=== PATIENT | female | born 1990 | race Caucasian/White ===

== ENCOUNTER 2019-02-19 06:32 | Inpatient (IN) | payer MEDICAID ==
[~2019-02-19] VITALS: Ht 165.1 cm; Wt 89.8 kg
[2019-02-19] MEDS ORDERED: DEXT 5%/LR + PITOCIN 20UNITS/L 1,000 ML IV SCH ×2 (06:37→06:57)
[2019-02-19] MEDS ORDERED: NALOXONE HCL 0.4 MG/ML 1ML VIAL IM PRN (06:45)
[2019-02-19] MEDS ORDERED: LIDOCAINE HCL 1% 20ML VIAL (Pyxis) INJ INFIL SCH (06:45)
[2019-02-19] MEDS ORDERED: METHYLERGONOVINE MALEATE 0.2 MG/ML IM PRN (06:45)
[2019-02-19] MEDS ORDERED: CARBOPROST TROMETHAMINE 250 MCG/ML AMPUL IM PRN (06:45)
[2019-02-19] MEDS ORDERED: MAGNESIUM 4 G PREMIX 100 ML IV ONE (07:00)
[2019-02-19] MEDS ORDERED: BISACODYL 10MG SUPP PR PRN (07:00)
[2019-02-19] MEDS ORDERED: BENZOCAINE/LANOLIN/ALOE VERA SPRAY TOP PRN (07:00)
[2019-02-19] MEDS ORDERED: DIPHENHYDRAMINE 25MG CAPSULE PO PRN (07:00)
[2019-02-19] MEDS ORDERED: ACETAMINOPHEN WITH CODEINE 300/30MG TABLET PO PRN ×2 (07:00)
[2019-02-19] MEDS ORDERED: RHO(D) IMMUNE GLOBULIN 300 MCG/SYR IM PRN (07:00)
[2019-02-19] MEDS ORDERED: IBUPROFEN 400MG TABLET PO PRN (07:00)
[2019-02-19 08:50] VITALS: BP 129/74
[2019-02-19 09:11] LABS: BASOPHILS % 0.1 % (0.0-2.0); EOSINOPHILS % 0.1 % (0.0-5.0); HEMATOCRIT. 35.1 % (36.0-48.0); LYMPHOCYTES % 11.1 % (20.0-50.0); MEAN CORPUSCULAR HEMOGLOBIN 35.1 pg (28.0-32.0); MEAN CORPUSCULAR VOLUME 102.8 fL (81.0-99.0); MEAN PLATELET VOLUME 8.9 fl (7.4-10.4); NEUTROPHILS % 85.7 % (40.0-76.0); PLATELET 256 x1000/uL (130-400); RED BLOOD CELL COUNT 3.42 mill/uL (4.2-5.4); RED CELL DISTRIBUTION WIDTH 12.8 % (11.6-14.6)
[2019-02-19 09:16] LABS: CHLORIDE 103 mEq/L (98-107); INR 0.9; PARTIAL THROMBOPLASTIN TIME 27.8 sec (23.4-31.0); PROTHROMBIN TIME 9.4 sec (9.6-11.0)
[2019-02-19 09:25] VITALS: BP 122/72
[2019-02-19 09:51] LABS: CLARITY URINE CLEAR (CLEAR); COLOR URINE YELLOW (YELLOW); KETONES URINE NEGATIVE (NEGATIVE); LEUKOCYTE ESTERASE URINE NEGATIVE (NEGATIVE); NITRITE URINE NEGATIVE (NEGATIVE); OCCULT BLOOD URINE 2+ (NEGATIVE); PROTEIN URINE 1+ (NEGATIVE); SPECIFIC GRAVITY URINE 1.021 (1.005-1.030); UROBILINOGEN URINE 0.2 E.U./dL (0.2-1.0)
[2019-02-19 11:01] LABS: *AMPHETAMINES SCREEN URINE NEGATIVE (NEGATIVE); *BENZODIAZEPINES SCREEN URINE NEGATIVE (NEGATIVE)
[2019-02-19 11:02] LABS: OPIATES URINE SCREEN NEGATIVE (NEGATIVE)
[2019-02-19 11:06] LABS: METHADONE URINE SCREEN NEGATIVE (NEGATIVE)
[2019-02-19 11:09] LABS: *BARBITURATES SCREEN URINE NEGATIVE (NEGATIVE); PHENCYCLIDINE URINE SCREEN NEGATIVE (NEGATIVE)
[2019-02-19 11:10] LABS: *COCAINE SCREEN URINE NEGATIVE (NEGATIVE)
[2019-02-19 11:12] LABS: CANNABINOID URINE SCREEN NEGATIVE (NEGATIVE)
[2019-02-19 11:57] LABS: INR 0.9; PARTIAL THROMBOPLASTIN TIME 28.7 sec (23.4-31.0); PROTHROMBIN TIME 9.4 sec (9.6-11.0)
[2019-02-19 12:04] LABS: BASOPHILS % 0.1 % (0.0-2.0); HEMATOCRIT. 33.2 % (36.0-48.0); HEMOGLOBIN. 11.6 g/dL (12.0-16.0); LYMPHOCYTES % 13.2 % (20.0-50.0); MEAN CORPUSCULAR HEMOGLOBIN 35.5 pg (28.0-32.0); MEAN CORPUSCULAR VOLUME 101.7 fL (81.0-99.0); MEAN PLATELET VOLUME 8.6 fl (7.4-10.4); MONOCYTES % 2.2 % (2.0-8.0); NEUTROPHILS % 84.5 % (40.0-76.0); PLATELET 257 x1000/uL (130-400); RED BLOOD CELL COUNT 3.27 mill/uL (4.2-5.4); RED CELL DISTRIBUTION WIDTH 12.5 % (11.6-14.6)
[2019-02-19] MEDS: SIMETHICONE 80MG TABLET CHEW PO SCH ×3 (13:00→20:57)
[2019-02-19] MEDS: MAGNESIUM/ALUMINUM HYDROXIDE/SIMETHICONE 30ML UDC PO SCH ×3 (13:04→20:57)
[2019-02-19] MEDS: PRENATAL VIT/FE FUMARATE/FA TABLET PO SCH (13:04)
[2019-02-19 16:21] VITALS: BP 125/77
[2019-02-19 20:00] VITALS: BP 133/75
[2019-02-19] MEDS: DOCUSATE SODIUM 100MG CAPSULE PO SCH (20:58)
[2019-02-19 22:33] LABS: HEPATITIS B SURFACE ANTIGEN NEGATIVE
[2019-02-20 05:29] VITALS: BP 118/70
[2019-02-20] MEDS: MAGNESIUM/ALUMINUM HYDROXIDE/SIMETHICONE 30ML UDC PO SCH ×4 (07:30→21:30)
[2019-02-20 07:38] VITALS: BP 124/63
[2019-02-20] MEDS: SIMETHICONE 80MG TABLET CHEW PO SCH ×3 (08:00→18:00)
[2019-02-20] MEDS: PRENATAL VIT/FE FUMARATE/FA TABLET PO SCH (08:14)
[2019-02-20 16:08] VITALS: BP 125/50
[2019-02-20 19:30] VITALS: BP 131/76
[2019-02-20] MEDS: DOCUSATE SODIUM 100MG CAPSULE PO SCH (21:30)
[2019-02-21 04:00] VITALS: BP 117/66
[2019-02-21] MEDS: MAGNESIUM/ALUMINUM HYDROXIDE/SIMETHICONE 30ML UDC PO SCH (07:30)
[2019-02-21] MEDS: SIMETHICONE 80MG TABLET CHEW PO SCH (08:00)
[2019-02-21] MEDS: PRENATAL VIT/FE FUMARATE/FA TABLET PO SCH (09:00)
[2019-02-21 09:34] VITALS: BP 119/74
== END 2019-02-21 10:05 | disposition home or self-care (01) | DRG 560 ==
LOC: 8 EST LDRP 06:32 → 8EST 08:40
PROVIDERS: ADMIT Obstetrics & Gynecology; ATTEND Obstetrics & Gynecology
PROC: 0KQM0ZZ Repair Perineum Muscle, Open Approach (ICD-10-PCS; principal; 2019-02-19)
DX: Z39.0 Encounter for care and examination of mother immediately after delivery (principal); Z37.0 Single live birth; O70.1 Second degree perineal laceration during delivery; Z3A.37 37 weeks gestation of pregnancy
CPT/HCPCS: 36415; 80051; 80305; 81003; 86592; 86703; 86762; 86850; 86900; 87340; 88307; J2590; J3490